=== PATIENT | female | born 1980 | race Caucasian/White ===

== ENCOUNTER → 2016-10-06 | Outpatient (CLI) | payer MEDICAID ==
[~2016-10-06] MED LIST: AMPHETAMINE SAL10 MG PO; ANTIVERT-DPS25 MG PO; APRESOLINE-DPS50 MG PO; BUPROPION HCL150 M1 PO; BUSPAR DPS15 MG PO; CLOTRIMAZOLE-BE45 GM TP; CYMBALTA DPS60 MG PO; CYMBALTA30 MG PO; DESYREL DPS100 MG PO; FORMOTEROL IH; GLUCOPHAGE1000 MG PO; HUMALOG SLIDING SCAL SQ; HUMALOG SQ; HUMALOG100 UNIT/1 SQ; KENALOG LOTION60 M1 TP; LAMOTRIGINE200 MG PO; LANTUS100 UNITS/ SQ; LEXAPRO DPS20 MG PO; LOPRESSOR DPS50 MG PO; LYRICA50 MG PO; METFORMIN PO; METOPROLOL PO; MINIPRESS DPS1 MG PO; MOMETASONE IH; MONTELUKAST PO; MONTELUKAST SOD10 MG PO; OMEPRAZOLE40 MG PO; OXY IR DPS5 MG PO; PROAIR HFA8.5 GM IH; PROVENTIL IH; SINEQUAN-DPS50 MG PO; VALIUM10 MG PO
== END | disposition home or self-care (01) ==
LOC: RAD.S 07-28 14:10
DX: R92.8 Other abnormal and inconclusive findings on diagnostic imaging of breast (principal); N63 Unspecified lump in breast

== ENCOUNTER → 2016-10-07 | Outpatient (CLI) | payer MEDICAID | END | disposition home or self-care (01) | LOC: RAD.S 10:28 | PROC: 0HBT3ZX Excision of Right Breast, Percutaneous Approach, Diagnostic (ICD-10-PCS; principal; 2016-10-07) | DX: N63 Unspecified lump in breast (principal) ==

== ENCOUNTER → 2016-11-01 | Outpatient (CLI) | payer MEDICAID | END | disposition home or self-care (01) | LOC: RAD.S 10-24 16:51 | DX: R51 Headache (principal); M54.2 Cervicalgia; R29.2 Abnormal reflex; M50.81 Other cervical disc disorders, high cervical region; M50.821 Other cervical disc disorders at C4-C5 level; M48.02 Spinal stenosis, cervical region; Z98.890 Other specified postprocedural states ==